=== PATIENT | female | born 1965 | race Caucasian/White ===

== ENCOUNTER 2022-08-22 07:09 | Outpatient (OUT) | payer OTHER, SELFPAY ==
--- NOTE | 2022-08-22 07:10 | CA_ITS ---
Patient: ARRON IRWIN Exam Date: 08/22/2022 : 1965 Gender:F Ordering : DR LINCOLN MOFFETT . Admission #: [id number] Family : Order #: [id number] CLICK HERE TO VIEW EXAM ECHOCARDIOGRAM REPORT PROCEDURE: CA ECHO DOPPLER COMPLETE INDICATIONS: Heart murmur, Family history of heart disease COMPARISON: None. DESCRIPTION: COMPLETE ECHOCARDIOGRAM Real-time transthoracic echocardiography with 2D, M-mode, spectral and color flow Doppler performed. QUALITY: Technical quality was good. LEFT VENTRICLE: Normal chamber size. Normal left ventricular wall thickness. LV EF: Global left ventricular systolic function is normal. Visual estimation of left ventricular ejection fraction is 65% DIASTOLIC: Normal diastolic function. ATRIAL SEPTUM: Inadequately seen. LEFT ATRIUM: Mild dilatation. RIGHT ATRIUM: Normal chamber size. RIGHT VENTRICLE: Normal chamber size. Normal right ventricular systolic function. TRICUSPID VALVE: Normal mobility and thickness. Mild regurgitation. Mild pulmonary hypertension. RVSP 37mmHg MITRAL VALVE: Normal mobility and thickness. No evidence of mitral valve stenosis. There is no mitral annular calcification. Mild mitral regurgitation. AORTIC VALVE: Normal trileaflet appearance. No visible sclerosis. Normal leaflet mobility. No evidence of aortic valve stenosis. No aortic regurgitation. AORTIC ROOT: Normal diameter and appearance. PULMONIC VALVE: Normal thickness and mobility. No stenosis. Trivial regurgitation. PERICARDIUM: No evidence of pericardial effusion. IVC: Collapses with inspirations. Normal size. CONCLUSION: 1. Global left ventricular systolic function is normal; visually estimated ejection fraction is 60 to 65% 2. The left atrium is mildly dilated 3. Right ventricle is normal in size and systolic function 4. Mild tricuspid regurgitation 5. Mildly elevated right ventricular systolic pressure; RVSP 37 mmHg 6. Mild mitral regurgitation Adult Echocardiography Procedure Report Left Ventricle LVEDD (3.7 - 5.6 cm): 4.15 cm LVESD (2.2 - 4.0 cm): 2.84 cm LVIVS thickness (0.6 - 1.2 cm): 0.87 cm LVPW thickness (0.5 - 1.0 cm): 0.83 cm e': 0.11 m/s E - e': 9.55 LVOT Max Gradient: 5.96 mm[Hg] LVOT Area (cm2): 1.22 m/s Peak Velocity (LVOT): 1.22 m/s Mean Velocity (LVOT): 0.76 m/s LVOT Diameter 2.01 cm Left Ventricular Ejection Fraction: 69.60 % Left Atrium LA Volume Index (2D A2C): 32.41 ml/m2 Left Atrium Systolic Dimension: 2.98 cm Mitral Valve MV E to A Ratio: 1.84 Mitral Valve A-Wave Peak Velocity: 0.59 m/s Mitral Valve E-Wave Peak Velocity: 1.08 m/s Right Ventricle RV Internal Diastolic Dimension: 3.71 cm Aorta AO Root Diam: 2.58 cm Ascending Ao Diam: 2.99 cm Aortic Valve AoV Area (Peak Milo): 2.67 cm2, 2.67 cm2 AoV Area (VTI): 2.55 cm2, 2.55 cm2 Peak Velocity(Antegrade Flow): 1.45 m/s Peak Gradient(Antegrade Flow): 8.40 mm[Hg] Mean Velocity(Antegrade Flow): 0.96 m/s Mean Gradient(Antegrade Flow): 4.26 mm[Hg] Velocity Time Integral: 32.58 cm Tricuspid Valve Peak Velocity (Regurgitant Flow): 2.58 m/s, 2.91 m/s Pulmonic Valve Mean Gradient: 2.16 mm[Hg], 2.05 mm[Hg] Mean Velocity: 0.68 m/s, 0.67 m/s Peak Velocity: 0.98 m/s Peak Gradient: 3.84 mm[Hg], 3.84 mm[Hg] Right Atrium Right Atrium Systolic Pressure: 34.02 ml, 34.02 ml Dictated by: Poonam Jameson M.D. on 08/25/2022 at 12:37 Approved by: Poonam Jameson M.D. on 08/25/2022 at 12:39
== END 2022-08-22 07:10 | disposition home or self-care (01) ==
LOC: CARD 07:09
PROVIDERS: PCP Family Medicine; Visit Provider Family Medicine
DX: R01.1 Cardiac murmur, unspecified (principal); Z82.49 Family history of ischemic heart disease and other diseases of the circulatory system; I34.0 Nonrheumatic mitral (valve) insufficiency; I07.1 Rheumatic tricuspid insufficiency
CPT/HCPCS: 93306